=== PATIENT | female | born 1980 ===

== ENCOUNTER 2019-01-24 16:39 | Emergency (ER) | payer MEDICAID ==
[2019-01-24 17:43] VITALS: BP 119/71; PULSE 66; RESP 18; TEMP 98.2; O2SAT 99
[2019-01-24 18:26] LABS: BASO % 0.4 % (0.0-2.0); EOS # 0.1 K/uL (0.0-0.7); EOS % 0.6 % (0.0-4.0); HEMOGLOBIN 11.8 g/dL (12.0-16.0); LYMPH # 1.6 K/uL (1.0-4.3); LYMPH % 19.6 % (20.0-40.0); MEAN CELL VOLUME 80.5 fl (81.0-99.0); MEAN CORPUSCULAR HEMOGLOBIN 25.7 pg (27.0-31.0); MEAN CORPUSCULAR HGB CONC 31.9 g/dL (33.0-37.0); MEAN PLATELET VOLUME 10.3 fl (7.2-11.7); MONO # 0.6 K/uL (0.0-0.8); MONO % 6.6 % (0.0-10.0); NEUT # 6.1 K/uL (1.8-7.0); NEUT % 72.8 % (50.0-75.0); RBC 4.59 Mil/uL (3.80-5.20); RED CELL DISTRIBUTION WIDTH 14.8 % (11.5-14.5); WHITE BLOOD COUNT 8.4 K/uL (4.8-10.8)
--- NOTE | 2019-01-24 18:30 | ED PDOC ---
HPI: Female Pain Time Seen by Provider: 01/24/19 18:01 Chief Complaint (Nursing): Female Genitourinary Chief Complaint (Provider): Female Genitourinary History Per: Patient History/Exam Limitations: no limitations Onset/Duration Of Symptoms: Days (x4) Current Symptoms Are (Timing): Still Present Additional Complaint(s): 38 year old female presents to the ED with LLQ abdominal pain and abnormal vaginal bleeding. Patient states she had a period from, 01/07/19 to 01/10/19 which was cna hha than usual. Patient states she began to have additional light vaginal spotting on Thursday associated abdominal pain which started before she went home from work which resolved Thursday morning. She has been going though one pad per day with spotting. Patient came to ED today because abdominal pain became worse. She denies history of ectopic , abnormal , ovarian cyst, or ovarian torsion. PMD: none provided Past Medical History Reviewed: Historical Data Vital Signs: Last Vital Signs Temp 98.2 F 01/24/19 17:40 Pulse 66 01/24/19 17:40 Resp 18 01/24/19 17:40 BP 119/71 01/24/19 17:40 Pulse Ox 99 01/24/19 17:40 - Family History Family History: States: Unknown Family Hx - Allergies Allergies/Adverse Reactions: Allergies Allergy/AdvReac Type Severity Reaction Status Date / Time No Known Allergies Allergy Verified 01/24/19 17:39 Review of Systems ROS Statement: Except As Marked, All Systems Reviewed And Found Negative Gastrointestinal: Positive for: Abdominal Pain (LLQ) Genitourinary Female: Positive for: Vaginal Bleeding Physical Exam - Reviewed Nursing Documentation Reviewed: Yes Vital Signs Reviewed: Yes - Physical Exam Appears: Positive for: No Acute Distress Head Exam: Positive for: ATRAUMATIC, NORMOCEPHALIC Skin: Positive for: Normal Color, Warm, Dry Eye Exam: Positive for: Normal appearance Cardiovascular/Chest: Positive for: Regular Rate, Rhythm Respiratory: Positive for: Normal Breath Sounds. Negative for: Respiratory Distress Gastrointestinal/Abdominal: Positive for: Tenderness (LLQ tenderness) Pelvic Exam: Positive for: Other (Deferred) Extremity: Positive for: Normal ROM (upper and lower) Neurological/Psych: Positive for: Awake, Alert, Oriented - Laboratory Results Result Diagrams: 01/24/19 18:19 03/18/19 18:19 - ECG O2 Sat by Pulse Oximetry: 99 (RA) Pulse Ox Interpretation: Normal Medical Decision Making Medical Decision Making: Time: 1809 Workup for ovarian torsion vs cyst vs other cause of abnormal bleeding and LLQ abdominal pain Plan: --basic labs including beta quant --pelvic US --reassess patient Time: 1899 --labs unremarkable, patient signed out Dr. Parker, pending US. Scribe Attestation: Documented by Tia Amor, acting as a scribe for Cande Gonzales MD. Provider Scribe Attestation: All medical record entries made by the Scribe were at my direction and personally dictated by me. I have reviewed the chart and agree that the record accurately reflects my personal performance of the history, physical exam, medical decision making, and the department course for this patient. I have also personally directed, reviewed, and agree with the discharge instructions and disposition. Disposition - Disposition Forms: [employer] (Faroese)
[2019-01-24 18:33] LABS: SQUAMOUS EPITHIAL 1 /hpf (0-5); URINE BACTERIA RARE (<OCC); URINE BILIRUBIN NEGATIVE (NEGATIVE); URINE CLARITY SLIGHTY-CLOUDY (Clear); URINE COLOR YELLOW (YELLOW); URINE GLUCOSE (UA) NEG (NEGATIVE); URINE LEUKOCYTE ESTERASE NEG Leu/uL (Negative); URINE PROTEIN 30 mg/dL (NEGATIVE); URINE UROBILINOGEN 0.2-1.0 mg/dL (0.2-1.0)
[2019-01-24 18:39] LABS: BLOOD UREA NITROGEN 18 mg/dl (7-17); CALCIUM 9.1 mg/dL (8.4-10.2); GFR NON-AFRICAN AMERICAN > 60
[2019-01-24 18:57] LABS: URINE BLOOD TRACE (NEGATIVE)
--- NOTE | 2019-01-24 19:25 | ED PDOC ---
- Laboratory Results Result Diagrams: 01/24/19 18:19 01/24/19 18:19 Lab Results: Urine Color Yellow (YELLOW) 01/24/19 18:19 Urine Clarity Slighty-cloudy (Clear) 01/24/19 18:19 Urine pH 5.0 (5.0-8.0) 01/24/19 18:19 Ur Specific [place] 1.029 (1.003-1.030) 01/24/19 18:19 Urine Protein 30 mg/dL (NEGATIVE) 01/24/19 18:19 Urine Glucose (UA) Neg mg/dL (NEGATIVE) 01/24/19 18:19 Urine Ketones Trace mg/dL (NEGATIVE) 01/24/19 18:19 Urine Blood Trace (NEGATIVE) 01/24/19 18: Urine Nitrate Negative (NEGATIVE) 01/24/19 18:19 Urine Bilirubin Negative (NEGATIVE) 01/24/19 18:19 Urine Urobilinogen 0.2-1.0 mg/dL (0.2-1.0) 01/24/19 18:19 Ur Leukocyte Esterase Neg Ana/uL (Negative) 01/24/19 18:19 Urine RBC (Auto) 9 /hpf (0-3) H 01/24/19 18:19 Urine Microscopic WBC 1 /hpf (0-5) 01/24/19 18:19 Ur Squamous Epith Cells 1 /hpf (0-5) 01/24/19 18:19 Urine Bacteria Rare (<OCC) 01/24/19 18:19 Beta HCG, Quant < 2.39 mIU/mL 01/24/19 18:45 - ECG O2 Sat by Pulse Oximetry: 99 (RA) Medical Decision Making Medical Decision Making: Time: 1899 --Patient signed out to this provider by Dr. Gonzales, pending US. Time: 2099 EXAM: US Pelvis, Complete Transvaginal and Transabdominal COMPARISON: None provided. CLINICAL HISTORY: Vaginal bleeding with left lower quadrant pain TECHNIQUE: Transvaginal and transabdominal pelvic ultrasound (complete) with image docu mentation. FINDINGS: ENDOMETRIUM: Normal thickness measuring 4.8 mm in AP dimension. UTERUS/CERVIX: The uterus is anteverted in position and elongated measuring 13.7 x 6.2 x 8.2 cm in longitudinal, AP and transverse dimensions respectively. A 4.4 x 4.8 x 4.8 cm solid heterogeneous zone is seen in the right anterior fundus thought compatible with a uterine fibroid. RIGHT OVARY: Normal Doppler flow. No abnormal mass. LEFT OVARY: Normal Doppler flow. No abnormal mass. FREE FLUID: No free fluid. IMPRESSION: 1. A 4.8 cm uterine fibroid identified in the anterior right uterine fundus. Electronically signed on Jan 24, 2019 8:52:15 PM EDT by: Fausto Scott M.D., MBA Certified By [facility] [facility] Trained MRI and CT Specialist Colleen TraceyHuman Resources Compliance Manager Used, ID: [id number] --Results were explained to patient --Patient well appearing, no complaints at this time, very well appearing --Strongly encouraged appointment with [facility] Scribe Attestation: Documented by Tia Amor, acting as a scribe for Terrence Parker MD. Provider Scribe Attestation: All medical record entries made by the Scribe were at my direction and personally dictated by me. I have reviewed the chart and agree that the record accurately reflects my personal performance of the history, physical exam, medic al decision making, and the department course for this patient. I have also personally directed, reviewed, and agree with the discharge instructions and disposition. Disposition - Clinical Impression Clinical Impression: Fibroid - POA Present On Arrival: None - Disposition [facility] Disposition: Routine/Home Disposition Time: 21:25 Condition: GOOD Prescriptions: Ibuprofen [Motrin Tab] 600 mg PO Q6 #30 tab Instructions: Uterine Fibroids Forms: [employer] (Surinamese) Print Language: CYMRAES
--- NOTE | 2019-01-25 13:12 | US ---
Date of service: 01/24/2019 HISTORY: left lower abdominal pain. r/o torsion COMPARISON: None available. TECHNIQUE: Transabdominal pelvic ultrasound FINDINGS: UTERUS: Measures 13.7 x 8.2 x 6.2 cm. Anteverted. Heterogeneous uterine masses appear consistent with fibroids measuring approximately 2.3 x 2.3 x 2.4 cm (left fundus) and 4.4 x 4.8 x 4.8 cm (right anterior fundus). ENDOMETRIUM: Measures 5 mm in diameter. CERVIX: No cervical abnormality identified. RIGHT OVARY: Measures 4.1 x 2.2 x 1.8 cm. Blood flow is demonstrated. LEFT OVARY: Measures 3.1 x 1.8 x 1.6 cm. Blood flow is demonstrated. FREE FLUID: No significant free fluid noted. OTHER FINDINGS: None. IMPRESSION: Uterine fibroids as above. Preliminary impression was provided by [employer].
== END 2019-01-24 21:33 | disposition home or self-care (01) ==
LOC: H.ER 16:39
DX: D25.9 Leiomyoma of uterus, unspecified (principal)